=== PATIENT | female | born 1945 | race Caucasian/White ===

== ENCOUNTER 2017-07-01 12:37 | Inpatient (IN) | payer MEDICARE, SELFPAY ==
[~2017-07-01] VITALS: Ht 162.6 cm; Wt 87.6 kg
[~2017-07-01 12:37] MED LIST: ACETAMINOPHEN; ALBIPROI; ALBU.083IS IH; ALBU3IS INH; ALPR1; ALPR1 PO; ASPI81EC; ATEN25; ATEN50; BACL10 PO; BECL40OI INH; CALCAVITD PO; CLON.1; CLON.2; CLON.5; CLON1; Clonazepam0.5 MG PO; DILT120; DILT240 PO; DILTIAZEM; ERGO50000 PO; FURO20 PO; GABA300 PO; HYDACE10B PO; HYDACE5 PO; HYDCHL25 PO; INDERAL; LANS30EC; LETR2.5 PO; LEVA.63IS IH; LEVSOD125 PO; LISI10; LORA.5; LORA1; METHI10; METHIMAZOLE PO; METO50ER; NITR.4SL; NORT10; Norco 10-325 T1 EACH PO; OMEP20ER; OMEP20ER PO; OTC POTASSIUM; OXYACE5T; OXYACE5T PO; OXYCODONE; OXYGEN; POTA8 PO; POTCHL10ER PO; PRAV20; PROM25; PROM25 PO; PROP65; Percocet 5-3251 EACH PO; QUAR INH; SENNP; SIMV40 PO; SPIR25 PO; Simvastatin20 MG PO; TEGA6; TUDORZA PRESS400 MCG IH; Ventolin5 MG/1 ML INH; [UNRECOGNIZED DRUG - REMARK]; [UNRECOGNIZED DRUG - REMARK]
[2017-07-01 13:14] LABS: BASOPHILS ABSOLUTE AUTO 0.07 K/mm3 (0.00-0.23); BASOPHILS PERCENT AUTO 1 % (0-2); EOSINOPHILS ABSOLUTE AUTO 0.11 K/mm3 (0.00-0.68); EOSINOPHILS PERCENT AUTO 1 % (0-6); IMMATURE GRAN ABSOLUTE AUTO 0.03 K/mm3 (0.00-0.10); IMMATURE GRAN PERCENT AUTO 0 % (0-1); LYMPHOCYTES ABSOLUTE AUTO 1.44 K/mm3 (0.84-5.20); LYMPHOCYTES PERCENT AUTO 15 % (21-46); MONOCYTES ABSOLUTE AUTO 0.52 K/mm3 (0.16-1.47); MONOCYTES PERCENT AUTO 6 % (4-13); Mean Corpuscular HGB 29.9 pg (26.0-34.0); Mean Corpuscular HGB Conc 33.3 g/dL (31.5-36.5); Mean Corpuscular Volume 90 fL (80-100); Mean Platelet Volume 10.4 fL (9.1-12.4); NEUTROPHILS PERCENT AUTO 77 % (41-73); Platelet Count 247 K/mm3 (150-400); RDW Coefficient Variation 14.2 % (11.7-14.2); Red Blood Cell Count 5.02 M/mm3 (3.80-5.20); White Blood Cell Count 9.47 K/mm3 (4.00-11.30)
[2017-07-01 13:37] LABS: Anion Gap 13 mmol/L (6-16); Blood Urea Nitrogen 27 mg/dL (8-24); Bun/Creatinine Ratio 8.4 (12.0-20.0); CO2, Blood 21 mmol/L (21-32); Chloride, Blood 105 mmol/L (98-108); Creatinine, Blood 3.22 mg/dL (0.40-1.00); Glomerular Filtration Rate 15 (60-); Glucose, Blood 146 mg/dL (70-99); Potassium, Blood 3.4 mmol/L (3.5-5.5); Sodium, Blood 139 mmol/L (136-145); Troponin I <0.015 ng/mL (0.000-0.040)
[2017-07-01 18:56] LABS: Source, Urine Voided
[2017-07-01 19:01] LABS: Bilirubin, Urine Neg (Neg); Blood, Urine Neg (Neg); Glucose Qualitative, Urine Neg (Neg); Ketones, Urine Neg (Neg); Leukocyte Esterase, Urine Neg (Neg); Nitrite, Urine Neg (Neg); Protein, Urine Neg (Neg); Urobilinogen, Urine NORM (Normal)
[2017-07-01 19:33] LABS: Appearance, Urine Clear (Clear); Color, Urine Pale Yellow (P-Yellow)
[2017-07-02 05:43] LABS: BASOPHILS ABSOLUTE AUTO 0.06 K/mm3 (0.00-0.23); BASOPHILS PERCENT AUTO 1 % (0-2); EOSINOPHILS ABSOLUTE AUTO 0.15 K/mm3 (0.00-0.68); EOSINOPHILS PERCENT AUTO 2 % (0-6); Hematocrit 40.2 % (33.0-51.0); Hemoglobin 12.7 g/dL (11.5-16.0); IMMATURE GRAN ABSOLUTE AUTO 0.03 K/mm3 (0.00-0.10); IMMATURE GRAN PERCENT AUTO 0 % (0-1); LYMPHOCYTES ABSOLUTE AUTO 1.56 K/mm3 (0.84-5.20); LYMPHOCYTES PERCENT AUTO 21 % (21-46); MONOCYTES ABSOLUTE AUTO 0.57 K/mm3 (0.16-1.47); MONOCYTES PERCENT AUTO 8 % (4-13); Mean Corpuscular HGB 29.6 pg (26.0-34.0); Mean Corpuscular HGB Conc 31.6 g/dL (31.5-36.5); Mean Platelet Volume 10.8 fL (9.1-12.4); NEUTROPHILS ABSOLUTE AUTO 5.08 K/mm3 (1.96-9.15); NEUTROPHILS PERCENT AUTO 68 % (41-73); Platelet Count 203 K/mm3 (150-400); RDW Coefficient Variation 14.3 % (11.7-14.2); RDW Standard Deviation 49.3 fL (35.1-46.3); Red Blood Cell Count 4.29 M/mm3 (3.80-5.20); White Blood Cell Count 7.45 K/mm3 (4.00-11.30)
[2017-07-02 05:50] LABS: Mean Corpuscular Volume 94 fL (80-100)
[2017-07-02 06:15] LABS: Bun/Creatinine Ratio 7.9 (12.0-20.0); Calcium, Blood 8.1 mg/dL (8.5-10.1); Creatinine, Blood 2.91 mg/dL (0.40-1.00); Potassium, Blood 4.1 mmol/L (3.5-5.5)
[2017-07-02 14:45] LABS: Adenovirus F 40/41 Not Detected (NOT DETECT); Astrovirus Not Detected (NOT DETECT); Campylobacter Sp Not Detected (NOT DETECT); Cryptosporidium Not Detected (NOT DETECT); Cyclospora Cayetanensis Not Detected (NOT DETECT); E. Coli O157 Not Detected (NOT DETECT); Entamoeba Histolytica Not Detected (NOT DETECT); Enteroaggregative E. coli-EAEC Not Detected (NOT DETECT); Enteropathogenic E. coli-EPEC Not Detected (NOT DETECT); Enterotoxigenic E. coli-ETEC Not Detected (NOT DETECT); Giardia Lamblia Not Detected (NOT DETECT); Norovirus GI/GII Not Detected (NOT DETECT); Plesiomonas Shigelloides Not Detected (NOT DETECT); Rotavirus A Not Detected (NOT DETECT); Salmonella Sp Not Detected (NOT DETECT); Shiga Toxin-prod E. coli-STEC Not Detected (NOT DETECT); Shigella/Enteroin E. coli-EIEC Not Detected (NOT DETECT); Vibrio Cholerae Not Detected (NOT DETECT); Vibrio Sp Not Detected (NOT DETECT); Yersinia Enterocolitica Not Detected (NOT DETECT)
[2017-07-02 16:09] LABS: Sapovirus Detected (NOT DETECT)
[2017-07-03 05:24] LABS: Bun/Creatinine Ratio 6.9 (12.0-20.0); Calcium, Blood 8.5 mg/dL (8.5-10.1); Creatinine, Blood 2.33 mg/dL (0.40-1.00); Magnesium, Blood 1.8 mg/dL (1.6-2.4)
[2017-07-04 06:30] LABS: Bun/Creatinine Ratio 7.1 (12.0-20.0); Calcium, Blood 8.8 mg/dL (8.5-10.1); Creatinine, Blood 1.41 mg/dL (0.40-1.00); Potassium, Blood 4.1 mmol/L (3.5-5.5)
[2017-07-05 06:37] LABS: BASOPHILS ABSOLUTE AUTO 0.06 K/mm3 (0.00-0.23); BASOPHILS PERCENT AUTO 1 % (0-2); EOSINOPHILS PERCENT AUTO 3 % (0-6); Hemoglobin 13.2 g/dL (11.5-16.0); IMMATURE GRAN ABSOLUTE AUTO 0.03 K/mm3 (0.00-0.10); IMMATURE GRAN PERCENT AUTO 0 % (0-1); LYMPHOCYTES ABSOLUTE AUTO 1.21 K/mm3 (0.84-5.20); LYMPHOCYTES PERCENT AUTO 17 % (21-46); MONOCYTES ABSOLUTE AUTO 0.43 K/mm3 (0.16-1.47); MONOCYTES PERCENT AUTO 6 % (4-13); Mean Corpuscular HGB 30.1 pg (26.0-34.0); Mean Platelet Volume 10.5 fL (9.1-12.4); NEUTROPHILS ABSOLUTE AUTO 5.36 K/mm3 (1.96-9.15); NEUTROPHILS PERCENT AUTO 74 % (41-73); Platelet Count 198 K/mm3 (150-400); RDW Coefficient Variation 13.5 % (11.7-14.2); RDW Standard Deviation 45.8 fL (35.1-46.3); Red Blood Cell Count 4.39 M/mm3 (3.80-5.20); White Blood Cell Count 7.29 K/mm3 (4.00-11.30)
[2017-07-05 06:39] LABS: Mean Corpuscular Volume 91 fL (80-100)
[2017-07-05 06:49] LABS: Bun/Creatinine Ratio 7.2 (12.0-20.0); Calcium, Blood 9.2 mg/dL (8.5-10.1); Creatinine, Blood 1.38 mg/dL (0.40-1.00); Potassium, Blood 4.2 mmol/L (3.5-5.5)
[2017-07-07 05:21] LABS: BASOPHILS ABSOLUTE AUTO 0.06 K/mm3 (0.00-0.23); BASOPHILS PERCENT AUTO 1 % (0-2); EOSINOPHILS ABSOLUTE AUTO 0.27 K/mm3 (0.00-0.68); EOSINOPHILS PERCENT AUTO 4 % (0-6); Hemoglobin 12.3 g/dL (11.5-16.0); IMMATURE GRAN ABSOLUTE AUTO 0.02 K/mm3 (0.00-0.10); IMMATURE GRAN PERCENT AUTO 0 % (0-1); LYMPHOCYTES ABSOLUTE AUTO 1.96 K/mm3 (0.84-5.20); LYMPHOCYTES PERCENT AUTO 28 % (21-46); MONOCYTES ABSOLUTE AUTO 0.56 K/mm3 (0.16-1.47); MONOCYTES PERCENT AUTO 8 % (4-13); Mean Corpuscular HGB 29.6 pg (26.0-34.0); Mean Corpuscular HGB Conc 32.4 g/dL (31.5-36.5); Mean Corpuscular Volume 91 fL (80-100); Mean Platelet Volume 10.4 fL (9.1-12.4); NEUTROPHILS ABSOLUTE AUTO 4.25 K/mm3 (1.96-9.15); NEUTROPHILS PERCENT AUTO 60 % (41-73); Platelet Count 185 K/mm3 (150-400); RDW Coefficient Variation 13.5 % (11.7-14.2); RDW Standard Deviation 45.4 fL (35.1-46.3); Red Blood Cell Count 4.16 M/mm3 (3.80-5.20); White Blood Cell Count 7.12 K/mm3 (4.00-11.30)
[2017-07-07 05:45] LABS: Bun/Creatinine Ratio 4.1 (12.0-20.0); Calcium, Blood 8.3 mg/dL (8.5-10.1); Creatinine, Blood 1.21 mg/dL (0.40-1.00)
[2017-07-07] MEDS ORDERED: LETR2.5 PO (12:35)
[2017-07-07] MEDS ORDERED: SACC250C PO (12:37)
[2017-07-07] MEDS ORDERED: ONDA4 PO (12:37)
[2017-07-07] MEDS ORDERED: FAMO20 PO (12:38)
[2017-07-07] MEDS ORDERED: VANC125 PO (12:38)
[2017-07-07] MEDS ORDERED: IBUP800 PO (12:39)
[2017-07-07] MEDS ORDERED: METO5A PO (12:39)
[2018-03-28] MEDS ORDERED: ALBU3IS INH (21:08)
[2018-03-28] MEDS ORDERED: Norco 5-325 Ta1 EACH PO (21:08)
== END 2017-07-07 13:36 | disposition home or self-care (01) | DRG 683 ==
LOC: ER 12:37 → MEDS 15:05 → EDBEDREQ 15:32 → MEDS 16:44 → ENPENDDIS 07-07 11:33 → MEDS 07-07 13:36
PROVIDERS: Emergency Medicine; Hospitalist; Internal Medicine
DX: N17.9 Acute kidney failure, unspecified (principal); A04.72 Enterocolitis due to Clostridium difficile, not specified as recurrent; E86.0 Dehydration; K21.9 Gastro-esophageal reflux disease without esophagitis; I12.9 Hypertensive chronic kidney disease with stage 1 through stage 4 chronic kidney disease, or unspecified chronic kidney disease; N18.3 Chronic kidney disease, stage 3 (moderate); G47.30 Sleep apnea, unspecified; E03.9 Hypothyroidism, unspecified; E87.6 Hypokalemia; Z79.899 Other long term (current) drug therapy; G43.909 Migraine, unspecified, not intractable, without status migrainosus; Z85.3 Personal history of malignant neoplasm of breast; Z88.5 Allergy status to narcotic agent; Z88.8 Allergy status to other drugs, medicaments and biological substances; Z91.018 Allergy to other foods
CPT/HCPCS: 36415; 71045; 74176; 80048; 81003; 83735; 84484; 85025; 87507; 93005; 93010; 96360; 96361; 99285; J1650; J1885; J2405; J2765; J3480; J7030

== ENCOUNTER 2019-07-25 15:42 | Emergency (ER) | payer MEDICARE ==
[~2019-07-25] VITALS: Ht 160 cm; Wt 87.1 kg
[~2019-07-25 15:42] MED LIST changes: +FAMO20 PO; +IBUP800 PO; +METO5A PO; +Norco 5-325 Ta1 EACH PO; +ONDA4 PO; +SACC250C PO; +VANC125 PO
[2019-07-25] MEDS ORDERED: Roxicodone5 MG PO (17:04)
== END 2019-07-25 17:23 | disposition home or self-care (01) ==
LOC: ER 15:42
DX: S46.012A Strain of muscle(s) and tendon(s) of the rotator cuff of left shoulder, initial encounter (principal); X58.XXXA Exposure to other specified factors, initial encounter; I10 Essential (primary) hypertension; G47.30 Sleep apnea, unspecified; E03.9 Hypothyroidism, unspecified; Z85.3 Personal history of malignant neoplasm of breast; Z79.899 Other long term (current) drug therapy
CPT/HCPCS: 73030; 96374; 96375; 96376; 99284-25; J1170; J1885

== ENCOUNTER 2019-08-14 23:05 | Emergency (ER) | payer MEDICARE ==
[~2019-08-14] VITALS: Ht 160 cm; Wt 82.1 kg
[~2019-08-14 23:05] MED LIST changes: +Roxicodone5 MG PO
== END 2019-08-15 01:47 | disposition home or self-care (01) ==
LOC: ER 23:05
DX: M25.512 Pain in left shoulder (principal); G89.29 Other chronic pain; J44.9 Chronic obstructive pulmonary disease, unspecified; E03.9 Hypothyroidism, unspecified; Z88.8 Allergy status to other drugs, medicaments and biological substances; Z79.899 Other long term (current) drug therapy
CPT/HCPCS: 96374; 96376; 99283-25; A9270; J1170

== ENCOUNTER 2019-09-12 19:14 | Emergency (ER) | payer MEDICARE ==
[~2019-09-12] VITALS: Ht 160 cm; Wt 81.7 kg
[2019-09-12 20:29] LABS: BASOPHILS ABSOLUTE AUTO 0.08 K/mm3 (0.00-0.23); BASOPHILS PERCENT AUTO 1 % (0-2); EOSINOPHILS ABSOLUTE AUTO 0.17 K/mm3 (0.00-0.68); EOSINOPHILS PERCENT AUTO 2 % (0-6); Hematocrit 43.2 % (33.0-51.0); Hemoglobin 14.7 g/dL (11.5-16.0); IMMATURE GRAN ABSOLUTE AUTO 0.03 K/mm3 (0.00-0.10); IMMATURE GRAN PERCENT AUTO 0 % (0-1); LYMPHOCYTES ABSOLUTE AUTO 2.48 K/mm3 (0.84-5.20); LYMPHOCYTES PERCENT AUTO 24 % (21-46); MONOCYTES ABSOLUTE AUTO 0.74 K/mm3 (0.16-1.47); MONOCYTES PERCENT AUTO 7 % (4-13); Mean Corpuscular HGB 29.6 pg (26.0-34.0); Mean Corpuscular Volume 87 fL (80-100); Mean Platelet Volume 10.8 fL (9.1-12.4); NEUTROPHILS PERCENT AUTO 66 % (41-73); Platelet Count 257 K/mm3 (150-400); RDW Coefficient Variation 13.2 % (11.7-14.2); RDW Standard Deviation 41.9 fL (35.1-46.3); Red Blood Cell Count 4.96 M/mm3 (3.80-5.20)
[2019-09-12 20:48] LABS: Alanine Aminotransfer (ALT/SGP 28 U/L (12-78); Albumin, Blood 3.8 g/dL (3.4-5.0); Alk Phos 66 U/L (50-136); Anion Gap 9 mmol/L (6-16); Aspartate Aminotrans (AST/SGOT 16 U/L (12-37); Bilirubin, Total 0.6 mg/dL (0.1-1.0); Blood Urea Nitrogen 21 mg/dL (8-24); Bun/Creatinine Ratio 17.8 (12.0-20.0); CO2, Blood 22 mmol/L (21-32); Calcium, Blood 9.5 mg/dL (8.5-10.1); Chloride, Blood 106 mmol/L (98-108); Creatinine, Blood 1.18 mg/dL (0.40-1.00); Globulin, Blood 3.8 g/dL (2.2-4.0); Glomerular Filtration Rate 48 (60-); Glucose, Blood 157 mg/dL (70-99); Potassium, Blood 3.5 mmol/L (3.5-5.5); Sodium, Blood 137 mmol/L (136-145); Total Protein, Blood 7.6 g/dL (6.4-8.2); Troponin I <0.015 ng/mL (0.000-0.040)
[2019-09-12] MEDS ORDERED: ONDA4ODT MM (22:13)
[2019-09-12] MEDS ORDERED: Percocet 7.5-31 EACH PO (22:13)
== END 2019-09-12 22:44 | disposition home or self-care (01) ==
LOC: ER 19:14
PROVIDERS: Nurse Practitioner
DX: M25.512 Pain in left shoulder (principal); I10 Essential (primary) hypertension; E03.9 Hypothyroidism, unspecified; G47.33 Obstructive sleep apnea (adult) (pediatric); Z88.8 Allergy status to other drugs, medicaments and biological substances; Z91.018 Allergy to other foods; Z79.899 Other long term (current) drug therapy; Z79.51 Long term (current) use of inhaled steroids
CPT/HCPCS: 71046; 80053; 84484; 85025; 93005; 93010; 96374; 96375; 99284-25; J1170; J2405; J3010

== ENCOUNTER 2019-11-10 19:10 | Emergency (ER) | payer MEDICARE, OTHER ==
[~2019-11-10] VITALS: Ht 160 cm; Wt 81.7 kg
[~2019-11-10 19:10] MED LIST changes: +ONDA4ODT MM; +Percocet 7.5-31 EACH PO
[2019-11-10] MEDS ORDERED: LOSARTAN POT TAB 100 (20:53)
[2019-11-10] MEDS ORDERED: SPIRONOLACTONE25 MG PO (20:53)
[2019-11-10] MEDS ORDERED: HYDROCHLOROT TAB 12. (20:54)
[2019-11-10 21:00] LABS: Calcium, Ionized (POC) 1.19 mmol/L (1.10-1.46); Chloride (POC) 106 mmol/L (98-108); Creatinine (POC) 1.3 mg/dL (0.6-1.0); Glucose (ISTAT POC) 120 mg/dL (70-99); Hemoglobin (POC) 16.7 g/dL (12.0-16.0); Potassium (POC) 4.1 mmol/L (3.5-5.5); Sodium (POC) 138 mmol/L (135-148); Total CO2 (POC) 19 mmol/L (21-32)
[2019-11-10 21:13] LABS: Source, Urine Clean Catch
[2019-11-10 21:28] LABS: Appearance, Urine Hazy (Clear); Color, Urine Yellow (P-Yellow)
[2019-11-10 21:30] LABS: Bilirubin, Urine Neg (Neg); Blood, Urine Neg (Neg); Glucose Qualitative, Urine Neg (Neg); Ketones, Urine Neg (Neg); Leukocyte Esterase, Urine 1+ (Neg); Nitrite, Urine Neg (Neg); Protein, Urine Neg (Neg); Urobilinogen, Urine NORM (Normal)
[2019-11-10 21:44] LABS: Amorphous Mod (0-Heavy); Bacteria Mod /hpf; Red Blood Cells, Urine Not Seen /hpf (0-2); Squamous Epithelial Cells Mod /hpf (Few)
== END 2019-11-10 21:56 | disposition home or self-care (01) ==
LOC: ER 19:10
PROVIDERS: Emergency Medicine
DX: G89.29 Other chronic pain (principal); M25.512 Pain in left shoulder; R10.9 Unspecified abdominal pain; Z88.8 Allergy status to other drugs, medicaments and biological substances; Z91.018 Allergy to other foods; Z79.899 Other long term (current) drug therapy; I10 Essential (primary) hypertension; G47.33 Obstructive sleep apnea (adult) (pediatric); E03.9 Hypothyroidism, unspecified; Z85.3 Personal history of malignant neoplasm of breast
CPT/HCPCS: 36415; 80047; 81001; 85014; 96374; 99283-25; A9270; J1170

== ENCOUNTER 2019-11-27 11:06 | Day surgery (SDC) | payer MEDICARE, OTHER ==
[~2019-11-27] VITALS: Ht 160 cm; Wt 84.6 kg
[~2019-11-27 11:06] MED LIST changes: +HYDROCHLOROT TAB 12.; +LOSARTAN POT TAB 100; +SPIRONOLACTONE25 MG PO; -Simvastatin20 MG PO
[2019-11-27] MEDS ORDERED: LOSA50 PO (11:43)
[2019-11-27] MEDS ORDERED: Simvastatin20 MG PO (11:43)
[2019-11-27] MEDS ORDERED: TYLECOD3 PO (11:44)
[2019-11-27] MEDS ORDERED: IPRAT-ALBUT 0.5-3 ML INH (11:45)
[2019-11-27] MEDS ORDERED: OMEP20ER PO (11:45)
[2019-11-27] MEDS ORDERED: PROM25 PO (11:46)
--- NOTE | 2019-11-27 11:54 | NUR ---
11/27/[address] NOTIFIED OF PT'S HR.
--- NOTE | 2019-11-27 13:07 | NUR ---
11/27/19 1307 Anna Richard 1 MG OF EPI ADDED TO FIRST 3 BAGS OF LR FOR IRRIGATION.
--- NOTE | 2019-11-27 15:29 | NUR ---
11/27/19 1529 Allie Figueroa PCP ADITYA LIZARRAGA' PHONE NUMBER GIVEN TO PT AND FAMILY. PT TO GET PAIN MEDICATIONS FROM PCP D/T PAIN CONTRACT.
== END 2019-11-27 15:22 | disposition home or self-care (01) ==
LOC: ORSCSDS 11:06
PROVIDERS: Orthopaedic Surgery
PROC: 0LS24ZZ Reposition Left Shoulder Tendon, Percutaneous Endoscopic Approach (ICD-10-PCS; principal; 2019-11-27 13:00)
PROC: 0RNK4ZZ Release Left Shoulder Joint, Percutaneous Endoscopic Approach (ICD-10-PCS; principal; 2019-11-27 13:00)
PROC: 0LQ24ZZ Repair Left Shoulder Tendon, Percutaneous Endoscopic Approach (ICD-10-PCS; principal; 2019-11-27 13:00)
DX: M75.112 Incomplete rotator cuff tear or rupture of left shoulder, not specified as traumatic (principal); M75.22 Bicipital tendinitis, left shoulder; M19.012 Primary osteoarthritis, left shoulder; M75.52 Bursitis of left shoulder; I10 Essential (primary) hypertension; I48.91 Unspecified atrial fibrillation; J45.909 Unspecified asthma, uncomplicated; G47.33 Obstructive sleep apnea (adult) (pediatric); Z87.891 Personal history of nicotine dependence; E03.9 Hypothyroidism, unspecified; Z79.899 Other long term (current) drug therapy; F41.9 Anxiety disorder, unspecified
CPT/HCPCS: 82947; C1713; J0171; J0690; J1100; J1885; J2250; J2405; J2704; J2710; J2765; J3010; J7120

== ENCOUNTER 2020-02-29 08:56 | Emergency (ER) | payer MEDICARE, OTHER ==
[~2020-02-29] VITALS: Ht 160 cm; Wt 89.4 kg
[~2020-02-29 08:56] MED LIST changes: +IPRAT-ALBUT 0.5-3 ML INH; +LOSA50 PO; +Simvastatin20 MG PO; +TYLECOD3 PO
[2020-02-29 09:50] LABS: Calcium, Ionized (POC) 1.18 mmol/L (1.10-1.46); Chloride (POC) 106 mmol/L (98-108); Creatinine (POC) 1.7 mg/dL (0.6-1.0); Glucose (ISTAT POC) 118 mg/dL (70-99); Hemoglobin (POC) 14.3 g/dL (12.0-16.0); Sodium (POC) 136 mmol/L (135-148); Total CO2 (POC) 18 mmol/L (21-32)
[2020-02-29] MEDS ORDERED: HYDROCHLOROTH12.5 MG PO (10:23)
== END 2020-02-29 11:11 | disposition home or self-care (01) ==
LOC: ER 08:56
PROVIDERS: Emergency Medicine
DX: F41.9 Anxiety disorder, unspecified (principal); E03.9 Hypothyroidism, unspecified; I10 Essential (primary) hypertension; J44.9 Chronic obstructive pulmonary disease, unspecified; Z88.8 Allergy status to other drugs, medicaments and biological substances; Z91.018 Allergy to other foods; Z87.442 Personal history of urinary calculi; Z79.899 Other long term (current) drug therapy
CPT/HCPCS: 71046; 80047; 85014; 93005; 93010; 99285-25

== ENCOUNTER 2020-09-11 15:12 | Emergency (ER) | payer MEDICARE, OTHER ==
[~2020-09-11] VITALS: Ht 160 cm; Wt 81.7 kg
[~2020-09-11 15:12] MED LIST changes: +HYDROCHLOROTH12.5 MG PO
[2020-09-11 16:30] LABS: BASOPHILS ABSOLUTE AUTO 0.05 K/mm3 (0.00-0.23); BASOPHILS PERCENT AUTO 0 % (0-2); EOSINOPHILS ABSOLUTE AUTO 0.08 K/mm3 (0.00-0.68); EOSINOPHILS PERCENT AUTO 1 % (0-6); Hematocrit 45.1 % (33.0-51.0); Hemoglobin 15.3 g/dL (11.5-16.0); IMMATURE GRAN ABSOLUTE AUTO 0.05 K/mm3 (0.00-0.10); IMMATURE GRAN PERCENT AUTO 0 % (0-1); LYMPHOCYTES PERCENT AUTO 16 % (21-46); MONOCYTES ABSOLUTE AUTO 0.73 K/mm3 (0.16-1.47); MONOCYTES PERCENT AUTO 5 % (4-13); Mean Corpuscular HGB 28.4 pg (26.0-34.0); Mean Corpuscular HGB Conc 33.9 g/dL (31.5-36.5); Mean Corpuscular Volume 84 fL (80-100); Mean Platelet Volume 10.9 fL (9.1-12.4); NEUTROPHILS ABSOLUTE AUTO 10.31 K/mm3 (1.96-9.15); NEUTROPHILS PERCENT AUTO 77 % (41-73); Platelet Count 357 K/mm3 (150-400); RDW Coefficient Variation 14.6 % (11.7-14.2); RDW Standard Deviation 44.1 fL (35.1-46.3); Red Blood Cell Count 5.39 M/mm3 (3.80-5.20); White Blood Cell Count 13.42 K/mm3 (4.00-11.30)
[2020-09-11 16:46] LABS: Albumin, Blood 3.6 g/dL (3.4-5.0); Albumin/Globulin Ratio 0.7 (0.8-1.8); Bilirubin, Total 0.6 mg/dL (0.1-1.0); Bun/Creatinine Ratio 19.3 (12.0-20.0); Calcium, Blood 9.4 mg/dL (8.5-10.1); Creatinine, Blood 1.14 mg/dL (0.40-1.00); Globulin, Blood 5.2 g/dL (2.2-4.0); Potassium, Blood 3.2 mmol/L (3.5-5.5); Total Protein, Blood 8.8 g/dL (6.4-8.2)
[2020-09-11 20:33] LABS: Source, Urine Clean Catch
[2020-09-11 20:38] LABS: Appearance, Urine Cloudy (Clear); Bilirubin, Urine Neg (Neg); Blood, Urine 1+ (Neg); Color, Urine Yellow (P-Yellow); Glucose Qualitative, Urine Neg (Neg); Ketones, Urine 1+ (Neg); Leukocyte Esterase, Urine 3+ (Neg); Nitrite, Urine Pos (Neg); Protein, Urine 1+ (Neg); Specific Gravity, Urine 1.015 (1.003-1.022); Urobilinogen, Urine NORM (Normal)
[2020-09-11 20:48] LABS: Bacteria Many /hpf; Squamous Epithelial Cells Few /hpf (Few); White Blood Cells, Urine 25-50 /hpf (0-5)
[2020-09-11] MEDS ORDERED: CEFP200 PO (21:40)
[2020-09-11] MEDS ORDERED: ONDA4ODT MM (21:41)
== END 2020-09-11 22:12 | disposition home or self-care (01) ==
LOC: ER 15:12
PROVIDERS: Emergency Medicine; Physician Assistant
DX: N12 Tubulo-interstitial nephritis, not specified as acute or chronic (principal); I12.9 Hypertensive chronic kidney disease with stage 1 through stage 4 chronic kidney disease, or unspecified chronic kidney disease; N18.9 Chronic kidney disease, unspecified; J44.9 Chronic obstructive pulmonary disease, unspecified; E03.9 Hypothyroidism, unspecified; Z88.8 Allergy status to other drugs, medicaments and biological substances; Z91.018 Allergy to other foods; Z79.899 Other long term (current) drug therapy
CPT/HCPCS: 36415; 71045; 80053; 81001; 83690; 85025; 87077; 87086; 87186; 93005; 93010; 96365; 96375; 99284-25; A9270; J0696; J2405; J3010; J7030

== ENCOUNTER → 2020-10-15 | Outpatient (CLI) | payer MEDICARE, OTHER ==
[~2020-10-15] MED LIST changes: +CEFP200 PO
== END ==
LOC: LAB 14:38 → LAB SHORT 14:38
DX: N39.0 Urinary tract infection, site not specified (principal); Z88.6 Allergy status to analgesic agent; Z88.8 Allergy status to other drugs, medicaments and biological substances; Z91.018 Allergy to other foods
CPT/HCPCS: 87086

== ENCOUNTER 2021-01-26 05:23 | Inpatient (IN) | payer MEDICARE, OTHER ==
[~2021-01-26] VITALS: Ht 160 cm; Wt 92.0 kg
[~2021-01-26 05:23] MED LIST changes: +EUTHYROX175 MCG PO; -LEVSOD125 PO; +LOSA25 PO; -LOSA50 PO
[2021-01-26 06:06] LABS: BASOPHILS ABSOLUTE AUTO 0.07 K/mm3 (0.00-0.23); BASOPHILS PERCENT AUTO 1 % (0-2); EOSINOPHILS ABSOLUTE AUTO 0.01 K/mm3 (0.00-0.68); EOSINOPHILS PERCENT AUTO 0 % (0-6); Hematocrit 37.2 % (33.0-51.0); IMMATURE GRAN ABSOLUTE AUTO 0.08 K/mm3 (0.00-0.10); IMMATURE GRAN PERCENT AUTO 1 % (0-1); LYMPHOCYTES ABSOLUTE AUTO 1.79 K/mm3 (0.84-5.20); LYMPHOCYTES PERCENT AUTO 13 % (21-46); MONOCYTES ABSOLUTE AUTO 0.25 K/mm3 (0.16-1.47); MONOCYTES PERCENT AUTO 2 % (4-13); Mean Corpuscular HGB 28.2 pg (26.0-34.0); Mean Corpuscular HGB Conc 32.3 g/dL (31.5-36.5); Mean Corpuscular Volume 88 fL (80-100); Mean Platelet Volume 11.5 fL (9.1-12.4); NEUTROPHILS ABSOLUTE AUTO 11.22 K/mm3 (1.96-9.15); NEUTROPHILS PERCENT AUTO 84 % (41-73); Platelet Count 294 K/mm3 (150-400); RDW Coefficient Variation 14.8 % (11.7-14.2); RDW Standard Deviation 47.7 fL (35.1-46.3); Red Blood Cell Count 4.25 M/mm3 (3.80-5.20); White Blood Cell Count 13.42 K/mm3 (4.00-11.30)
[2021-01-26 06:18] LABS: Albumin, Blood 2.9 g/dL (3.4-5.0); Albumin/Globulin Ratio 0.9 (0.8-1.8); Bilirubin, Total 0.7 mg/dL (0.1-1.0); Calcium, Blood 8.1 mg/dL (8.5-10.1); Creatinine, Blood 1.25 mg/dL (0.40-1.00); Globulin, Blood 3.4 g/dL (2.2-4.0); Potassium, Blood 3.5 mmol/L (3.5-5.5); Total Protein, Blood 6.3 g/dL (6.4-8.2)
[2021-01-26 07:01] LABS: SARS-Cov-2 (COVID-19) PCR, MMC NEGATIVE (NEGATIVE)
[2021-01-26 10:45] LABS: Calcium, Ionized (POC) 0.96 mmol/L (1.10-1.46); Chloride (POC) 115 mmol/L (98-108); Creatinine (POC) 1.2 mg/dL (0.6-1.0); Glucose (ISTAT POC) 158 mg/dL (70-99); Hemoglobin (POC) 9.2 g/dL (12.0-16.0); Potassium (POC) 4.2 mmol/L (3.5-5.5); Sodium (POC) 142 mmol/L (135-148); Total CO2 (POC) 16 mmol/L (21-32)
[2021-01-26] MEDS ORDERED: OXYCODONE-ACET1 EAC2 PO (12:51)
[2021-01-26 17:30] LABS: Base Excess Venous -2.6 mmol/L; Bicarbonate Venous 22.1 mmol/L (24.0-30.0); PCO2 Venous 32.2 mmHg (38-42); pH Blood Venous 7.44 (7.34-7.37)
[2021-01-26 17:40] LABS: Hematocrit 33.8 % (33.0-51.0); Hemoglobin 11.3 g/dL (11.5-16.0)
[2021-01-26 21:21] LABS: Hematocrit 31.5 % (33.0-51.0); Hemoglobin 10.4 g/dL (11.5-16.0)
[2021-01-27 04:25] LABS: BASOPHILS ABSOLUTE AUTO 0.07 K/mm3 (0.00-0.23); BASOPHILS PERCENT AUTO 1 % (0-2); EOSINOPHILS ABSOLUTE AUTO 0.05 K/mm3 (0.00-0.68); EOSINOPHILS PERCENT AUTO 1 % (0-6); Hematocrit 28.1 % (33.0-51.0); Hemoglobin 8.9 g/dL (11.5-16.0); IMMATURE GRAN ABSOLUTE AUTO 0.04 K/mm3 (0.00-0.10); IMMATURE GRAN PERCENT AUTO 0 % (0-1); LYMPHOCYTES ABSOLUTE AUTO 3.25 K/mm3 (0.84-5.20); LYMPHOCYTES PERCENT AUTO 30 % (21-46); MONOCYTES PERCENT AUTO 7 % (4-13); Mean Corpuscular HGB 28.3 pg (26.0-34.0); Mean Corpuscular HGB Conc 31.7 g/dL (31.5-36.5); Mean Corpuscular Volume 90 fL (80-100); Mean Platelet Volume 11.1 fL (9.1-12.4); NEUTROPHILS ABSOLUTE AUTO 6.82 K/mm3 (1.96-9.15); NEUTROPHILS PERCENT AUTO 62 % (41-73); Platelet Count 177 K/mm3 (150-400); RDW Coefficient Variation 15.4 % (11.7-14.2); RDW Standard Deviation 50.4 fL (35.1-46.3); Red Blood Cell Count 3.14 M/mm3 (3.80-5.20); White Blood Cell Count 11.03 K/mm3 (4.00-11.30)
[2021-01-27 04:45] LABS: Albumin, Blood 2.4 g/dL (3.4-5.0); Bilirubin, Total 0.6 mg/dL (0.1-1.0); Bun/Creatinine Ratio 29.4 (12.0-20.0); Calcium, Blood 7.5 mg/dL (8.5-10.1); Creatinine, Blood 1.26 mg/dL (0.40-1.00); Globulin, Blood 2.5 g/dL (2.2-4.0); Magnesium, Blood 1.4 mg/dL (1.6-2.4); Potassium, Blood 3.4 mmol/L (3.5-5.5); Total Protein, Blood 4.9 g/dL (6.4-8.2)
[2021-01-27 09:56] LABS: Hematocrit 28.8 % (33.0-51.0); Hemoglobin 9.3 g/dL (11.5-16.0)
[2021-01-27 14:49] LABS: Hematocrit 28.4 % (33.0-51.0); Hemoglobin 9.1 g/dL (11.5-16.0)
[2021-01-27 22:24] LABS: Hematocrit 28.6 % (33.0-51.0); Hemoglobin 9.4 g/dL (11.5-16.0)
[2021-01-28 06:11] LABS: BASOPHILS ABSOLUTE AUTO 0.06 K/mm3 (0.00-0.23); BASOPHILS PERCENT AUTO 1 % (0-2); EOSINOPHILS ABSOLUTE AUTO 0.19 K/mm3 (0.00-0.68); EOSINOPHILS PERCENT AUTO 2 % (0-6); Hematocrit 24.4 % (33.0-51.0); IMMATURE GRAN ABSOLUTE AUTO 0.04 K/mm3 (0.00-0.10); IMMATURE GRAN PERCENT AUTO 1 % (0-1); LYMPHOCYTES ABSOLUTE AUTO 1.88 K/mm3 (0.84-5.20); LYMPHOCYTES PERCENT AUTO 22 % (21-46); MONOCYTES ABSOLUTE AUTO 0.54 K/mm3 (0.16-1.47); MONOCYTES PERCENT AUTO 6 % (4-13); Mean Corpuscular HGB 28.9 pg (26.0-34.0); Mean Corpuscular HGB Conc 32.8 g/dL (31.5-36.5); Mean Corpuscular Volume 88 fL (80-100); Mean Platelet Volume 11.5 fL (9.1-12.4); NEUTROPHILS ABSOLUTE AUTO 5.92 K/mm3 (1.96-9.15); NEUTROPHILS PERCENT AUTO 69 % (41-73); Platelet Count 138 K/mm3 (150-400); RDW Coefficient Variation 15.3 % (11.7-14.2); RDW Standard Deviation 49.1 fL (35.1-46.3); Red Blood Cell Count 2.77 M/mm3 (3.80-5.20); White Blood Cell Count 8.63 K/mm3 (4.00-11.30)
[2021-01-28 06:33] LABS: Albumin, Blood 2.5 g/dL (3.4-5.0); Bilirubin, Total 0.7 mg/dL (0.1-1.0); Bun/Creatinine Ratio 12.1 (12.0-20.0); Calcium, Blood 7.7 mg/dL (8.5-10.1); Creatinine, Blood 1.24 mg/dL (0.40-1.00); Globulin, Blood 2.5 g/dL (2.2-4.0); Potassium, Blood 3.3 mmol/L (3.5-5.5)
[2021-01-28 11:40] LABS: Hematocrit 25.2 % (33.0-51.0)
[2021-01-28 17:24] LABS: Hematocrit 27.9 % (33.0-51.0); Hemoglobin 9.1 g/dL (11.5-16.0)
[2021-01-28 22:39] LABS: Source, Urine Catheter
[2021-01-28 22:45] LABS: Bilirubin, Urine Neg (Neg); Blood, Urine Neg (Neg); Glucose Qualitative, Urine Neg (Neg); Ketones, Urine Neg (Neg); Leukocyte Esterase, Urine 2+ (Neg); Nitrite, Urine Neg (Neg); Protein, Urine Neg (Neg); Specific Gravity, Urine 1.005 (1.003-1.022); Urobilinogen, Urine NORM (Normal)
[2021-01-28 22:54] LABS: Appearance, Urine Clear (Clear); Color, Urine Yellow (P-Yellow)
[2021-01-28 22:55] LABS: Bacteria Mod /hpf; Red Blood Cells, Urine 0-2 /hpf (0-2); Squamous Epithelial Cells Few /hpf (Few); White Blood Cells, Urine 25-50 /hpf (0-5)
[2021-01-29 06:25] LABS: BASOPHILS ABSOLUTE AUTO 0.06 K/mm3 (0.00-0.23); BASOPHILS PERCENT AUTO 1 % (0-2); EOSINOPHILS ABSOLUTE AUTO 0.24 K/mm3 (0.00-0.68); EOSINOPHILS PERCENT AUTO 3 % (0-6); Hematocrit 26.3 % (33.0-51.0); Hemoglobin 8.5 g/dL (11.5-16.0); IMMATURE GRAN ABSOLUTE AUTO 0.02 K/mm3 (0.00-0.10); IMMATURE GRAN PERCENT AUTO 0 % (0-1); LYMPHOCYTES ABSOLUTE AUTO 1.35 K/mm3 (0.84-5.20); LYMPHOCYTES PERCENT AUTO 17 % (21-46); MONOCYTES ABSOLUTE AUTO 0.55 K/mm3 (0.16-1.47); MONOCYTES PERCENT AUTO 7 % (4-13); Mean Corpuscular HGB 28.5 pg (26.0-34.0); Mean Corpuscular HGB Conc 32.3 g/dL (31.5-36.5); Mean Corpuscular Volume 88 fL (80-100); Mean Platelet Volume 11.3 fL (9.1-12.4); NEUTROPHILS ABSOLUTE AUTO 5.77 K/mm3 (1.96-9.15); NEUTROPHILS PERCENT AUTO 72 % (41-73); NRBC ABSOLUTE 0.03 K/mm3 (0.00-0.02); NRBC Auto 0.4 /100 WBC (0.0-0.2); Platelet Count 150 K/mm3 (150-400); RDW Coefficient Variation 15.5 % (11.7-14.2); RDW Standard Deviation 49.3 fL (35.1-46.3); Red Blood Cell Count 2.98 M/mm3 (3.80-5.20); White Blood Cell Count 7.99 K/mm3 (4.00-11.30)
[2021-01-29 10:22] LABS: Albumin, Blood 2.9 g/dL (3.4-5.0); Albumin/Globulin Ratio 0.9 (0.8-1.8); Bilirubin, Total 0.7 mg/dL (0.1-1.0); Bun/Creatinine Ratio 7.2 (12.0-20.0); Calcium, Blood 8.6 mg/dL (8.5-10.1); Creatinine, Blood 0.97 mg/dL (0.40-1.00); Globulin, Blood 3.2 g/dL (2.2-4.0); Potassium, Blood 3.3 mmol/L (3.5-5.5); Total Protein, Blood 6.1 g/dL (6.4-8.2)
[2021-01-30 05:14] LABS: BASOPHILS ABSOLUTE AUTO 0.06 K/mm3 (0.00-0.23); BASOPHILS PERCENT AUTO 1 % (0-2); EOSINOPHILS ABSOLUTE AUTO 0.31 K/mm3 (0.00-0.68); EOSINOPHILS PERCENT AUTO 4 % (0-6); Hematocrit 26.2 % (33.0-51.0); Hemoglobin 8.4 g/dL (11.5-16.0); IMMATURE GRAN ABSOLUTE AUTO 0.04 K/mm3 (0.00-0.10); IMMATURE GRAN PERCENT AUTO 1 % (0-1); LYMPHOCYTES PERCENT AUTO 24 % (21-46); MONOCYTES ABSOLUTE AUTO 0.67 K/mm3 (0.16-1.47); MONOCYTES PERCENT AUTO 8 % (4-13); Mean Corpuscular HGB 28.6 pg (26.0-34.0); Mean Corpuscular HGB Conc 32.1 g/dL (31.5-36.5); Mean Corpuscular Volume 89 fL (80-100); Mean Platelet Volume 11.2 fL (9.1-12.4); NEUTROPHILS PERCENT AUTO 64 % (41-73); Platelet Count 178 K/mm3 (150-400); RDW Coefficient Variation 15.8 % (11.7-14.2); RDW Standard Deviation 49.6 fL (35.1-46.3); Red Blood Cell Count 2.94 M/mm3 (3.80-5.20); White Blood Cell Count 8.78 K/mm3 (4.00-11.30)
[2021-01-30 05:32] LABS: Albumin, Blood 2.6 g/dL (3.4-5.0); Albumin/Globulin Ratio 0.8 (0.8-1.8); Bilirubin, Total 0.7 mg/dL (0.1-1.0); Bun/Creatinine Ratio 3.2 (12.0-20.0); Calcium, Blood 7.7 mg/dL (8.5-10.1); Creatinine, Blood 1.25 mg/dL (0.40-1.00); Globulin, Blood 3.3 g/dL (2.2-4.0); Potassium, Blood 3.3 mmol/L (3.5-5.5); Total Protein, Blood 5.9 g/dL (6.4-8.2)
[2021-01-30] MEDS ORDERED: ALBU2.5V5 INH (15:13)
[2021-01-30] MEDS ORDERED: COLCRYS0.6 M1 PO (15:18)
[2021-01-30] MEDS ORDERED: OMEP20ER PO (15:19)
[2021-01-30] MEDS ORDERED: SUCRALFATE PO (15:23)
[2021-01-30] MEDS ORDERED: CEFD300 PO (15:24)
== END 2021-01-30 16:10 | disposition home or self-care (01) | DRG 368 ==
LOC: ER 05:23 → ERHOLD 12:46 → ICUW 12:46 → ORSCIP 12:46 → MEDS 12:46 → ICUW 17:05 → MEDS 01-27 22:27 → ORSCIP 01-28 16:55
PROVIDERS: Emergency Medicine; Internal Medicine; Internal Medicine Gastroenterology; Nurse Practitioner Acute Care; Student in an Organized Health Care Education/Training Program; ADMIT Hospitalist
PROC: 0DJ08ZZ Inspection of Upper Intestinal Tract, Via Natural or Artificial Opening Endoscopic (ICD-10-PCS; 2021-01-26)
PROC: 30233N1 Transfusion of Nonautologous Red Blood Cells into Peripheral Vein, Percutaneous Approach (ICD-10-PCS; principal; 2021-01-26 17:45)
PROC: 0DJ08ZZ Inspection of Upper Intestinal Tract, Via Natural or Artificial Opening Endoscopic (ICD-10-PCS; 2021-01-27)
DX: K22.6 Gastro-esophageal laceration-hemorrhage syndrome (principal); R57.1 Hypovolemic shock; D62 Acute posthemorrhagic anemia; N39.0 Urinary tract infection, site not specified; Z20.822 Contact with and (suspected) exposure to COVID-19; K31.819 Angiodysplasia of stomach and duodenum without bleeding; E87.6 Hypokalemia; E83.42 Hypomagnesemia; E03.9 Hypothyroidism, unspecified; J44.9 Chronic obstructive pulmonary disease, unspecified; I48.91 Unspecified atrial fibrillation; N18.30 Chronic kidney disease, stage 3 unspecified; G47.33 Obstructive sleep apnea (adult) (pediatric); E78.5 Hyperlipidemia, unspecified; M10.9 Gout, unspecified; I12.9 Hypertensive chronic kidney disease with stage 1 through stage 4 chronic kidney disease, or unspecified chronic kidney disease; Z85.3 Personal history of malignant neoplasm of breast; Z90.49 Acquired absence of other specified parts of digestive tract; Z98.890 Other specified postprocedural states; Z90.89 Acquired absence of other organs; Z85.850 Personal history of malignant neoplasm of thyroid; Z99.81 Dependence on supplemental oxygen; Z87.891 Personal history of nicotine dependence; Z86.010 Personal history of colon polyps; Z90.710 Acquired absence of both cervix and uterus; Z79.899 Other long term (current) drug therapy
CPT/HCPCS: 36415; 36430; 74176; 80047; 80053; 81001; 82272; 82803; 83036; 83690; 83735; 83880; 84132; 84484; 84550; 85014; 85018; 85025; 86850; 86900; 86901; 86902; 86922; 87077; 87086; 87186; 93005; 93010; 96374; 96375; 97116; 97162; 97165; 97535; 99285-25; A9270; C1751; C9113; J0171; J0696; J1430; J2370; J2405; J2550; J2704; J2765; J2916; J3010; J3475; J3480; J7030; J7050; J7120; P9016; U0004

== ENCOUNTER → 2021-04-16 | Outpatient (CLI) | payer MEDICARE, OTHER ==
[~2021-04-16] MED LIST changes: +ALBU2.5V5 INH; +CEFD300 PO; +COLCRYS0.6 M1 PO; +OXYCODONE-ACET1 EAC2 PO; +SUCRALFATE PO
[2021-04-16 19:09] LABS: BASOPHILS ABSOLUTE AUTO 0.07 K/mm3 (0.00-0.23); BASOPHILS PERCENT AUTO 1 % (0-2); EOSINOPHILS ABSOLUTE AUTO 0.15 K/mm3 (0.00-0.68); EOSINOPHILS PERCENT AUTO 2 % (0-6); Hematocrit 39.4 % (33.0-51.0); IMMATURE GRAN ABSOLUTE AUTO 0.02 K/mm3 (0.00-0.10); IMMATURE GRAN PERCENT AUTO 0 % (0-1); LYMPHOCYTES ABSOLUTE AUTO 2.39 K/mm3 (0.84-5.20); LYMPHOCYTES PERCENT AUTO 24 % (21-46); MONOCYTES ABSOLUTE AUTO 0.83 K/mm3 (0.16-1.47); MONOCYTES PERCENT AUTO 8 % (4-13); Mean Corpuscular HGB 23.2 pg (26.0-34.0); Mean Corpuscular HGB Conc 30.5 g/dL (31.5-36.5); Mean Corpuscular Volume 76 fL (80-100); Mean Platelet Volume 11.8 fL (9.1-12.4); NEUTROPHILS ABSOLUTE AUTO 6.46 K/mm3 (1.96-9.15); NEUTROPHILS PERCENT AUTO 65 % (41-73); Platelet Count 297 K/mm3 (150-400); RDW Coefficient Variation 16.6 % (11.7-14.2); RDW Standard Deviation 46.1 fL (35.1-46.3); Red Blood Cell Count 5.17 M/mm3 (3.80-5.20); White Blood Cell Count 9.92 K/mm3 (4.00-11.30)
[2021-04-16 19:17] LABS: Anion Gap 7 mmol/L (6-16); Blood Urea Nitrogen 23 mg/dL (8-24); CHOL/HDL RATIO 4.8; CO2, Blood 24 mmol/L (21-32); Calcium, Blood 9.2 mg/dL (8.5-10.1); Chloride, Blood 105 mmol/L (98-108); Cholesterol 215 mg/dL (50-200); Creatinine, Blood 1.21 mg/dL (0.40-1.00); Glomerular Filtration Rate 43 (60-); Glucose, Blood 103 mg/dL (70-99); HDL Cholesterol 45 mg/dL (>39); LDL/HDL RATIO 2.6; Low Density Lipoprotein Chol 116 mg/dL (0-110); Potassium, Blood 3.6 mmol/L (3.5-5.5); Sodium, Blood 136 mmol/L (136-145); Triglycerides 268 mg/dL (30-160); Very Low Density Lipoprot Chol 53 mg/dL (6-32)
== END ==
LOC: LAB 14:45 → LAB SHORT 14:45
PROVIDERS: Family Medicine
DX: Z11.59 Encounter for screening for other viral diseases (principal); E11.9 Type 2 diabetes mellitus without complications; E78.5 Hyperlipidemia, unspecified
CPT/HCPCS: 80048; 80061; 85025; 86803

== ENCOUNTER → 2022-10-14 | Outpatient (CLI) | payer MEDICARE, OTHER | END | disposition home or self-care (01) | LOC: LAB 14:15 → LAB SHORT 14:15 | DX: E03.9 Hypothyroidism, unspecified (principal) | CPT/HCPCS: 84443 ==

== ENCOUNTER 2023-01-20 16:25 | Emergency (ER) | payer MEDICARE, OTHER ==
[~2023-01-20] VITALS: Ht 160 cm; Wt 80.7 kg
[2023-01-20 17:47] LABS: BASOPHILS ABSOLUTE AUTO 0.08 K/mm3 (0.00-0.23); BASOPHILS PERCENT AUTO 1 % (0-2); EOSINOPHILS ABSOLUTE AUTO 0.18 K/mm3 (0.00-0.68); EOSINOPHILS PERCENT AUTO 2 % (0-6); Hematocrit 44.1 % (33.0-51.0); Hemoglobin 14.8 g/dL (11.5-16.0); IMMATURE GRAN ABSOLUTE AUTO 0.03 K/mm3 (0.00-0.10); IMMATURE GRAN PERCENT AUTO 0 % (0-1); LYMPHOCYTES ABSOLUTE AUTO 2.31 K/mm3 (0.84-5.20); LYMPHOCYTES PERCENT AUTO 23 % (21-46); MONOCYTES ABSOLUTE AUTO 0.86 K/mm3 (0.16-1.47); MONOCYTES PERCENT AUTO 9 % (4-13); Mean Corpuscular HGB 28.3 pg (26.0-34.0); Mean Corpuscular HGB Conc 33.6 g/dL (31.5-36.5); Mean Corpuscular Volume 84 fL (80-100); Mean Platelet Volume 11.2 fL (9.1-12.4); NEUTROPHILS PERCENT AUTO 65 % (41-73); Platelet Count 243 K/mm3 (150-400); RDW Standard Deviation 43.1 fL (35.1-46.3); Red Blood Cell Count 5.23 M/mm3 (3.80-5.20); White Blood Cell Count 9.96 K/mm3 (4.00-11.30)
[2023-01-20 18:02] LABS: Magnesium, Blood 1.8 mg/dL (1.6-2.4)
[2023-01-20 18:06] LABS: Albumin, Blood 3.6 g/dL (3.4-5.0); Albumin/Globulin Ratio 0.8 (0.8-1.8); Bilirubin, Total 0.5 mg/dL (0.1-1.0); Bun/Creatinine Ratio 25.4 (12.0-20.0); Calcium, Blood 9.8 mg/dL (8.5-10.1); Creatinine, Blood 1.14 mg/dL (0.40-1.00); Globulin, Blood 4.5 g/dL (2.2-4.0); Phosphorus, Blood 2.7 mg/dL (2.5-4.9); Potassium, Blood 3.9 mmol/L (3.5-5.5); Thyroid Stimulating Hormone 0.341 uIU/mL (0.360-4.800); Total Protein, Blood 8.1 g/dL (6.4-8.2)
[2023-01-20 19:09] LABS: D-Dimer, Quantitative 0.66 mg/L FEU (0.00-0.52); International Normalized Ratio 1.05
[2023-01-20 21:00] LABS: Anti-Xa UFH, PHA Monitoring <0.10 IU/mL
[2023-01-20] MEDS ORDERED: XARELTO20 MG PO (22:10)
[2023-01-20 22:30] VITALS: BP 117/79
== END 2023-01-20 22:54 | disposition home or self-care (01) ==
LOC: ER 16:25
PROVIDERS: Emergency Medicine
DX: R00.2 Palpitations (principal); R00.9 Unspecified abnormalities of heart beat; I48.91 Unspecified atrial fibrillation; J44.9 Chronic obstructive pulmonary disease, unspecified; E03.9 Hypothyroidism, unspecified; I10 Essential (primary) hypertension; C50.919 Malignant neoplasm of unspecified site of unspecified female breast; Z99.81 Dependence on supplemental oxygen; Z79.810 Long term (current) use of selective estrogen receptor modulators (SERMs); Z88.5 Allergy status to narcotic agent; Z88.8 Allergy status to other drugs, medicaments and biological substances; Z79.899 Other long term (current) drug therapy
CPT/HCPCS: 71045; 80053; 83735; 84100; 84443; 84484; 85025; 85379; 85520; 85610; 85730; 93005; 93010; 96361; 96365; 99285-25; A9270; J1644; J3475; J7030

== ENCOUNTER 2023-06-09 10:24 | Emergency (ER) | payer MEDICARE, OTHER ==
[~2023-06-09] VITALS: Ht 160 cm; Wt 79.4 kg
[~2023-06-09 10:24] MED LIST changes: +XARELTO20 MG PO
[2023-06-09 11:46] LABS: BASOPHILS ABSOLUTE AUTO 0.07 K/mm3 (0.00-0.23); BASOPHILS PERCENT AUTO 1 % (0-2); EOSINOPHILS ABSOLUTE AUTO 0.23 K/mm3 (0.00-0.68); EOSINOPHILS PERCENT AUTO 2 % (0-6); Hematocrit 47.4 % (33.0-51.0); IMMATURE GRAN ABSOLUTE AUTO 0.04 K/mm3 (0.00-0.10); IMMATURE GRAN PERCENT AUTO 0 % (0-1); LYMPHOCYTES ABSOLUTE AUTO 1.81 K/mm3 (0.84-5.20); LYMPHOCYTES PERCENT AUTO 17 % (21-46); MONOCYTES ABSOLUTE AUTO 0.72 K/mm3 (0.16-1.47); MONOCYTES PERCENT AUTO 7 % (4-13); Mean Corpuscular HGB 27.5 pg (26.0-34.0); Mean Corpuscular HGB Conc 33.8 g/dL (31.5-36.5); Mean Corpuscular Volume 81 fL (80-100); Mean Platelet Volume 10.9 fL (9.1-12.4); NEUTROPHILS ABSOLUTE AUTO 7.53 K/mm3 (1.96-9.15); NEUTROPHILS PERCENT AUTO 72 % (41-73); Platelet Count 268 K/mm3 (150-400); RDW Coefficient Variation 15.1 % (11.7-14.2); RDW Standard Deviation 43.8 fL (35.1-46.3); Red Blood Cell Count 5.82 M/mm3 (3.80-5.20)
[2023-06-09 12:14] LABS: Albumin, Blood 3.5 g/dL (3.4-5.0); Albumin/Globulin Ratio 0.7 (0.8-1.8); Bun/Creatinine Ratio 9.9 (12.0-20.0); Calcium, Blood 9.7 mg/dL (8.5-10.1); Creatinine, Blood 0.81 mg/dL (0.40-1.00); Potassium, Blood 3.3 mmol/L (3.5-5.5); Total Protein, Blood 8.5 g/dL (6.4-8.2)
[2023-06-09 15:04] LABS: Magnesium, Blood 1.9 mg/dL (1.6-2.4)
[2023-06-09] MEDS ORDERED: ONDA4ODT MM (16:35)
[2023-06-09 17:00] VITALS: BP 144/81
[2023-06-09] MEDS ORDERED: METO25ER (17:56)
== END 2023-06-09 17:14 | disposition home or self-care (01) ==
LOC: ER 10:24
PROVIDERS: Emergency Medicine
DX: I48.91 Unspecified atrial fibrillation (principal); I10 Essential (primary) hypertension; B34.9 Viral infection, unspecified; G89.29 Other chronic pain; J44.9 Chronic obstructive pulmonary disease, unspecified; E03.9 Hypothyroidism, unspecified; G47.30 Sleep apnea, unspecified; Z79.899 Other long term (current) drug therapy; Z88.8 Allergy status to other drugs, medicaments and biological substances; Z91.018 Allergy to other foods
CPT/HCPCS: 28190; 71046; 80053; 83735; 85025; 93005; 93010; 96374-59; 99284-25; A9270; J2405

== ENCOUNTER 2024-01-21 20:23 | Inpatient (IN) | payer MEDICARE, OTHER ==
[~2024-01-21] VITALS: Ht 160 cm; Wt 70.0 kg
[~2024-01-21 20:23] MED LIST changes: +AMLODIPINE BESYL5 MG PO; +CEPH500 PO; +EUTHYROX125 MC1 PO; +JARDIANCE10 MG PO; +METO25ER PO; +XARELTO20 M1 PO
[2024-01-21 20:53] LABS: BASOPHILS ABSOLUTE AUTO 0.08 K/mm3 (0.00-0.23); BASOPHILS PERCENT AUTO 1 % (0-2); EOSINOPHILS ABSOLUTE AUTO 0.12 K/mm3 (0.00-0.68); EOSINOPHILS PERCENT AUTO 1 % (0-6); Hematocrit 49.7 % (33.0-51.0); Hemoglobin 16.9 g/dL (11.5-16.0); IMMATURE GRAN ABSOLUTE AUTO 0.04 K/mm3 (0.00-0.10); IMMATURE GRAN PERCENT AUTO 0 % (0-1); LYMPHOCYTES ABSOLUTE AUTO 2.12 K/mm3 (0.84-5.20); LYMPHOCYTES PERCENT AUTO 18 % (21-46); MONOCYTES ABSOLUTE AUTO 0.89 K/mm3 (0.16-1.47); MONOCYTES PERCENT AUTO 7 % (4-13); Mean Corpuscular HGB 29.2 pg (26.0-34.0); Mean Corpuscular Volume 86 fL (80-100); Mean Platelet Volume 11.2 fL (9.1-12.4); NEUTROPHILS ABSOLUTE AUTO 8.89 K/mm3 (1.96-9.15); NEUTROPHILS PERCENT AUTO 73 % (41-73); Platelet Count 237 K/mm3 (150-400); RDW Coefficient Variation 14.5 % (11.7-14.2); RDW Standard Deviation 45.1 fL (35.1-46.3); Red Blood Cell Count 5.78 M/mm3 (3.80-5.20); White Blood Cell Count 12.14 K/mm3 (4.00-11.30)
[2024-01-21 21:10] LABS: D-Dimer, Quantitative 0.77 mg/L FEU (0.00-0.52); International Normalized Ratio 1.29; Prothrombin Time Results 13.5 Sec (9.7-11.5)
[2024-01-21 21:17] LABS: Free Thyroxine 1.62 ng/dL (0.70-1.60); Thyroid Stimulating Hormone 5.47 uIU/mL (0.360-4.800)
[2024-01-21 21:19] LABS: Albumin, Blood 3.4 g/dL (3.4-5.0); Albumin/Globulin Ratio 0.8 (0.8-1.8); Bilirubin, Total 1.3 mg/dL (0.1-1.0); Bun/Creatinine Ratio 18.7 (12.0-20.0); Calcium, Blood 14.6 mg/dL (8.5-10.1); Creatinine, Blood 1.55 mg/dL (0.40-1.00); Globulin, Blood 4.4 g/dL (2.2-4.0); Potassium, Blood 4.7 mmol/L (3.5-5.5); Total Protein, Blood 7.8 g/dL (6.4-8.2)
[2024-01-21] MEDS ORDERED: NS 1,000 ML IV SCH ×2 (21:25→23:00)
[2024-01-21 21:42] LABS: Magnesium, Blood 1.6 mg/dL (1.6-2.4)
[2024-01-21] MEDS ORDERED: ZOLEDRONIC ACID IV ONE (22:55)
[2024-01-21] MEDS ORDERED: NS IV ONE (22:55)
[2024-01-21] MEDS ORDERED: Calcitonin Salmon 200 IU/ML 2ML Vial SC SCH (23:15)
[2024-01-21 23:43] LABS: Source, Urine Clean Catch
[2024-01-21 23:45] LABS: Bilirubin, Urine Neg (Neg); Blood, Urine 1+ (Neg); Glucose Qualitative, Urine 3+ (Neg); Ketones, Urine Neg (Neg); Leukocyte Esterase, Urine 3+ (Neg); Nitrite, Urine Neg (Neg); Protein, Urine Neg (Neg); Specific Gravity, Urine 1.015 (1.003-1.022); Urobilinogen, Urine NORM (Normal)
[2024-01-21 23:53] LABS: Appearance, Urine Hazy (Clear); Color, Urine Pale Yellow (P-Yellow)
[2024-01-21 23:54] LABS: Bacteria Mod /hpf; Squamous Epithelial Cells Few /hpf (Few); White Blood Cells, Urine 25-50 /hpf (0-5)
[2024-01-22] VITALS (7 sets, daily range): BP systolic 90–117; BP diastolic 65–82
[2024-01-22] MEDS ORDERED: Ondansetron HCl 2 MG / ML 2ML Vial IV PRN (00:25)
[2024-01-22] MEDS ORDERED: Morphine Sulfate 4 MG/1 ML Injection IV PRN (00:55)
[2024-01-22] MEDS ORDERED: Acetaminophen 325 MG TABLET PO PRN (04:10)
--- NOTE | 2024-01-22 04:39 | NUR ---
SHIFT SUMMARY PT ARRIVED FROM ED AT 0055. PT A&O3 (YR), VSS AND COMPLETED ADMISSION HX WITH PT. PT STATES HAVE HAD SEVERAL FALLS RECENTLY, EDUCATED PT ON FALL PREVENTION AND APPLIED PURE WICK. PT PASSED BEDSIDE DYSPHAGIA SCREEN AND MD NOTIFIED OF PAIN SCORE WITH PT REFUSING MORPHINE. MD ORDERED HOME DOSE OF OXYCODONE TO RESUME. DAUGHTER, SAMY, CALLED FOR PT UPDATE ([phone]).
[2024-01-22] MEDS ORDERED: OxyCODONE HCL 5 MG TAB PO PRN (05:00)
[2024-01-22] MEDS ORDERED: Albuterol 2.5 MG/3 ML VIAL INH PRN (06:50)
[2024-01-22] MEDS ORDERED: Metoprolol Succinate 25 MG TABCR PO SCH (08:00)
[2024-01-22] MEDS ORDERED: CefTRIAXone 1000 MG Vial ONE (08:28)
[2024-01-22] MEDS ORDERED: NS 100 ML IV ONE (08:28)
[2024-01-22] MEDS ORDERED: Spironolactone 25 MG Tab PO SCH (09:00)
[2024-01-22] MEDS ORDERED: Levothyroxine Sodium 0.1 MG Tab PO SCH (09:00)
[2024-01-22] MEDS ORDERED: Losartan Potassium 50 MG Tab PO SCH (09:00)
[2024-01-22] MEDS ORDERED: Lactobacil 2-S.Thermo-Bifido 1 1 Cap PO SCH (09:00)
[2024-01-22] MEDS ORDERED: AmLODIPine Besylate 5 MG Tab PO SCH (09:00)
[2024-01-22] MEDS ORDERED: Empagliflozin 10 MG TAB PO SCH (09:00)
[2024-01-22] MEDS ORDERED: Rivaroxaban 10 MG Tab PO SCH (09:00)
[2024-01-22] MEDS ORDERED: CefTRIAXone Sodium 1,000 MG in NS 100 ML IV SCH (09:00)
[2024-01-22] MEDS ORDERED: Levothyroxine Sodium 0.125 MG Tab PO SCH (09:00)
[2024-01-22 09:39] LABS: Albumin/Globulin Ratio 0.8 (0.8-1.8); Bilirubin, Total 0.9 mg/dL (0.1-1.0); Bun/Creatinine Ratio 16.5 (12.0-20.0); Creatinine, Blood 1.21 mg/dL (0.40-1.00); Globulin, Blood 3.8 g/dL (2.2-4.0); Potassium, Blood 4.6 mmol/L (3.5-5.5); Total Protein, Blood 6.8 g/dL (6.4-8.2)
[2024-01-22 09:43] LABS: Calcium, Blood 12.1 mg/dL (8.5-10.1)
[2024-01-22] MEDS ORDERED: NS 1,000 ML IV SCH (11:07)
[2024-01-22] MEDS ORDERED: Dexamethasone Sod Phos 10 MG/ML 1ML VIAL IV SCH (11:26)
[2024-01-22] MEDS ORDERED: Ipratropium/Albuterol SulF 2.5-0.5MG/3 ML Amp INH SCH (11:35)
[2024-01-22] MEDS ORDERED: Metoclopramide HCl 5MG / ML 2ML Vial IV ONE (13:25)
[2024-01-22] MEDS ORDERED: Metoclopramide HCl 5MG / ML 2ML Vial IV PRN (13:45)
[2024-01-22 17:17] LABS: Bun/Creatinine Ratio 16.2 (12.0-20.0); Calcium, Blood 11.7 mg/dL (8.5-10.1); Creatinine, Blood 1.17 mg/dL (0.40-1.00)
--- NOTE | 2024-01-22 18:29 | NUR ---
SHIFT SUMMARY NEURO: PT ALERT AND ORIENTED TO SELF, PLACE, AND SITUATION BUT UNAWARE OF THE DATE. PT ANSWERES QUESTIONS APPROPRIATELY AND FOLLOWS COMMANDS. CARDAIC: PT HAS BEEN IN AFIB WITH A RATE IN THE 80'S-90'S. DENIES ANY CP. RESP: BREATH SOUNDS CLEAR THROUGHOUT AND DENIES ANY SOB. PT ON 2L NC AT BASELINE. GI/: PT IS INCONTINENT AND RAMAINED ON THE PURE WICK. PT DID NOT EAT ANY MEALS TODAY. PT REPORTED NAUSEA AT THE BEGINING OF THE SHIFT AND WAS GIVEN ZOFRAN WITH MINIMAL RELIEF. PROVIDER ORDERED REGLAN THAT GAVE PT RELIEF. PT WAS UP IN CHAIR BUT DID NOT WANT TO EAT ANYTHING. PO FLUIDS WERE ENCOURAGED THROUGHOUT SHIFT. SKIN: PT HAS A SORE ON HER COCCXYX. MEPLEX PLACED THIS AM. PT HAS BEEN TURNED Q2 HOURSE THROUGHOUT THIS SHIFT. NO OTHER SIGNIFICANT CHANGES OR EVENTS HAPPENED DURING SHIFT.
[2024-01-23] VITALS (8 sets, daily range): BP systolic 98–128; BP diastolic 58–86
[2024-01-23 03:53] LABS: BASOPHILS ABSOLUTE AUTO 0.02 K/mm3 (0.00-0.23); BASOPHILS PERCENT AUTO 0 % (0-2); EOSINOPHILS PERCENT AUTO 0 % (0-6); Hematocrit 45.4 % (33.0-51.0); IMMATURE GRAN ABSOLUTE AUTO 0.07 K/mm3 (0.00-0.10); IMMATURE GRAN PERCENT AUTO 1 % (0-1); LYMPHOCYTES ABSOLUTE AUTO 1.13 K/mm3 (0.84-5.20); LYMPHOCYTES PERCENT AUTO 9 % (21-46); MONOCYTES ABSOLUTE AUTO 0.64 K/mm3 (0.16-1.47); MONOCYTES PERCENT AUTO 5 % (4-13); Mean Corpuscular HGB 29.1 pg (26.0-34.0); Mean Corpuscular Volume 88 fL (80-100); Mean Platelet Volume 11.4 fL (9.1-12.4); NEUTROPHILS ABSOLUTE AUTO 11.31 K/mm3 (1.96-9.15); NEUTROPHILS PERCENT AUTO 86 % (41-73); Platelet Count 219 K/mm3 (150-400); RDW Coefficient Variation 14.6 % (11.7-14.2); Red Blood Cell Count 5.16 M/mm3 (3.80-5.20); White Blood Cell Count 13.17 K/mm3 (4.00-11.30)
[2024-01-23 04:12] LABS: Bun/Creatinine Ratio 18.3 (12.0-20.0); Calcium, Blood 10.9 mg/dL (8.5-10.1); Creatinine, Blood 1.04 mg/dL (0.40-1.00); Potassium, Blood 4.3 mmol/L (3.5-5.5)
[2024-01-23] MEDS ORDERED: Levothyroxine Sodium 0.15 MG Tab PO SCH (06:00)
[2024-01-23] MEDS ORDERED: Levothyroxine Sodium 0.125 MG Tab PO SCH (06:00)
[2024-01-23] MEDS ORDERED: Omeprazole 20 MG CapCR PO SCH (06:00)
--- NOTE | 2024-01-23 06:13 | NUR ---
SHIFT SUMMARY RESUMED PT CARE AT 1900. PT A&O3, VSS. PT REPORTED BACK PAIN AND HEADACHE THROUGH OUT THE NIGHT. ALONG W NAUSEA IN THE AM. PT ON Q2H TURNS, COCCYX WOUND REMAINS THE SAME. PT BED AT LOWEST POSITION, BED ALARM ON AND CALL LIGHT WITHIN REACH.
[2024-01-23] MEDS ORDERED: CefTRIAXone 1000 MG Vial ONE ×2 (08:25→08:47)
[2024-01-23] MEDS ORDERED: NS 100 ML IV ONE ×2 (08:25→08:47)
--- NOTE | 2024-01-23 10:14 | NUR ---
AM NOTE this rn assumed care at 0700. vital signs stable. tele afib 90s. patient is alert and oriented x3. patient is forgetful at times. patient denies chest pain/pressure, pain, or shortness of breath. patient had minimal intake this morning only eating small amounts of diced pears and drinking broth. patient reports nausea and received morning nausea medications. see shift assessment for further detials. purewick in place. md leo in to see patient this am. discussed plan of care. plan remains up to date
--- NOTE | 2024-01-23 11:58 | NUR ---
upon receiving a referral for spiritual care, I visited the patient. She tells me about her medical history, her current medical issues and the plan of care moving forward. She tells me about her strong [employer] jeremias and growing up going to latter day since she was a child. She shares a story about finding her son in law of a heart attack in their her home decade or so ago. Her dtr, Cynthia still lives with her. She does not show signs of spiritual distress but welcomes prayer and conversations centered around her jeremias, which I provided. She showed signs of being encouraged in her jeremias.
--- NOTE | 2024-01-23 17:07 | NUR ---
shift summary patient vital signs remain stable. tele afib 80s. patient neuro remains unchanged. repositioned q2. patient in chair today for meals. patient ate minimal food due to being nausea, medicated per emar. patient express some relief from medications. this rn encourage oral intake and offered other options of food. this rn updated provider on minimal intake. no acute changes this shift. plan remains up to date.
[2024-01-23 17:26] LABS: Bun/Creatinine Ratio 18.8 (12.0-20.0); Calcium, Blood 10.9 mg/dL (8.5-10.1); Creatinine, Blood 1.01 mg/dL (0.40-1.00)
[2024-01-24 01:29] LABS: VITAMIN D,1,25-DIHYDROXY 10.7 pg/mL (19.9-79.3)
[2024-01-24 04:13] LABS: BASOPHILS ABSOLUTE AUTO 0.04 K/mm3 (0.00-0.23); BASOPHILS PERCENT AUTO 0 % (0-2); EOSINOPHILS ABSOLUTE AUTO 0.05 K/mm3 (0.00-0.68); EOSINOPHILS PERCENT AUTO 0 % (0-6); Hematocrit 45.9 % (33.0-51.0); Hemoglobin 14.9 g/dL (11.5-16.0); IMMATURE GRAN ABSOLUTE AUTO 0.09 K/mm3 (0.00-0.10); IMMATURE GRAN PERCENT AUTO 1 % (0-1); LYMPHOCYTES ABSOLUTE AUTO 1.45 K/mm3 (0.84-5.20); LYMPHOCYTES PERCENT AUTO 10 % (21-46); MONOCYTES ABSOLUTE AUTO 1.14 K/mm3 (0.16-1.47); MONOCYTES PERCENT AUTO 8 % (4-13); Mean Corpuscular HGB 28.9 pg (26.0-34.0); Mean Corpuscular HGB Conc 32.5 g/dL (31.5-36.5); Mean Corpuscular Volume 89 fL (80-100); Mean Platelet Volume 11.1 fL (9.1-12.4); NEUTROPHILS PERCENT AUTO 81 % (41-73); Platelet Count 231 K/mm3 (150-400); RDW Coefficient Variation 14.7 % (11.7-14.2); RDW Standard Deviation 47.8 fL (35.1-46.3); Red Blood Cell Count 5.16 M/mm3 (3.80-5.20); White Blood Cell Count 14.77 K/mm3 (4.00-11.30)
[2024-01-24 04:30] VITALS: BP 110/72
[2024-01-24 04:40] LABS: Bun/Creatinine Ratio 17.8 (12.0-20.0); Calcium, Blood 10.5 mg/dL (8.5-10.1); Creatinine, Blood 1.01 mg/dL (0.40-1.00); Potassium, Blood 4.3 mmol/L (3.5-5.5)
--- NOTE | 2024-01-24 04:48 | NUR ---
SHIFT SUMMARY RESUMED CARE OF PT AT 1900. PT A&O3, CANNOT RECALL YEAR. VSS AND REPORTS EATING BETTER TODAY. NO ACUTE OVERNIGHT EVENTS. REPOSITIONED Q2H. PT BED IN LOWEST POSITION AND CALL LIGHT WITHIN REACH.
[2024-01-24] MEDS ORDERED: Polyethylene Glycol 3350 17 gm PO PRN (11:10)
[2024-01-24 11:52] VITALS: BP 99/81
--- NOTE | 2024-01-24 19:28 | NUR ---
SHIFT SUMMARY: NEURO: PATIENT REPORTED IMPROVED MENTATION. PATIENT ALERT AND ORIENTED X3 (WRONG DATE OF THE MONTH). PATIENT ABLE TO ANSWER QUESTIONS APPROPRIATELY AND MAKE HER NEEDS KNOWN. PATIENT REPORTS BLINDNESS IN RIGHT EYE AND PARTIAL BLINDNESS IN LEFT EYE. PATIENT CAHTO, BUT ABLE TO UNDERSTAND RN. PATIENT ABLE TO MOVE ALL EXTREMITIES. PATIENT UP TO CHAIR FOR LUNCH, BUT DECLINED OOB ACTIVITY FOR OTHER MEALS. PATIENT EASILY FATIGUED. PATIENT MEDICATED ONCE FOR PAIN WITH HOME OXYCODONE DOSE. CARDIAC: PATIENT IN AFIB IN THE 80S DURING THE SHIFT. WITH ACTIVITY, HR INCREASED INTO THE LOW 100S. PATIENT QUICKLY RECOVERED WITH REST. PATIENT DENIED CHEST PAIN OR DIZZINESS. VITALS STABLE WITH MAPS >65. RESPIRATORY: PATIENT STABLE ON ROOM AIR. PATIENT DENIED SHORTNESS OF BREATH OR DIFFICULTY BREATHING. SPO2 >94% ON ROOM AIR. GI/: PATIENT VOIDING DARK YELLOW URINE. NO FOULD ODOR NOTED. PATIENT REPORTS A MINIMAL APPETITE. DOWNGRADED TEXTURE TO MINCED AND MOIST RELATED TO LACK OF DENTATION. MEDICATED ONCE FOR MILD NAUSEA. NO EMESIS. NO BOWEL MOVEMENT THIS SHIFT. BOWEL CARE ORDERED. PATIENT ALSO REQUESTED AND RECEIVED PRUNE JUICE. PSYCHSOCIAL: PATIENT CALM AND COOPERATIVE WITH STAFF. SHE RECEIVED MULTIPLE PHONE CALLS FROM FAMILY.
[2024-01-24 20:40] VITALS: BP 106/80
[2024-01-24] MEDS ORDERED: Docusate Sodium/Senna 1 Tab PO SCH (21:00)
[2024-01-25 04:11] VITALS: BP 99/74
--- NOTE | 2024-01-25 04:49 | NUR ---
SHIFT SUMMARY PT RESTED T/O SHIFT. PAIN MANAGED PER EMAR. PT REPOSTIONED Q2 FOR REDNESS ON COCCYX. PT TOLERATING PO INTAKE. VOIDING, PUREWICK IN USE, DRAINING YELLOW URINE. VSS. NO OTHER CONCERNS AT THIS TIME, CALL LIGHT WITHIN REACH.
[2024-01-25 05:15] LABS: Albumin, Blood 2.9 g/dL (3.4-5.0); Anion Gap 16 mmol/L (3-11); Blood Urea Nitrogen 19 mg/dL (8-24); Bun/Creatinine Ratio 18.3 (12.0-20.0); CO2, Blood 15 mmol/L (21-32); Calcium, Blood 10.1 mg/dL (8.5-10.1); Chloride, Blood 109 mmol/L (98-108); Creatinine, Blood 1.04 mg/dL (0.40-1.00); Glomerular Filtration Rate 55 (60-); Glucose, Blood 105 mg/dL (70-99); Phosphorus, Blood 1.5 mg/dL (2.5-4.9); Potassium, Blood 3.8 mmol/L (3.5-5.5); Sodium, Blood 136 mmol/L (136-145)
--- NOTE | 2024-01-25 05:31 | NUR ---
PT TRANSFERRED TO 341 WITH ALL BELONGINGS
--- NOTE | 2024-01-25 06:17 | NUR ---
REPORT FROM ADAM AT 0515. PATIENT ARRIVED VIA BED FROM PCU 9 AT 0525. SETTLED IN ROOM, PUREWICK CONNECTED. DENIES NEEDS AT THIS TIME. BED ALARM ON, CALL LIGHT NEAR.TELE AF @79 PER VICENTE IN TELE. BED LOWERED.
[2024-01-25 07:43] VITALS: BP 105/77
[2024-01-25] MEDS ORDERED: NS 250 ML IV PRN (08:20)
[2024-01-25] MEDS ORDERED: DOCUZEN 8.6-501 EACH PO (15:10)
[2024-01-25] MEDS ORDERED: CEFD300 PO (15:32)
[2024-01-25] MEDS ORDERED: Sodium Phosphate Mono/Dibasic 250 MG Tab PO SCH (17:00)
--- NOTE | 2024-01-25 17:53 | NUR ---
DISCHARGE SUMMARY: PT DISCHARGED HOME WITH HOME HEALTH SERVICES TODAY. PT GRANDSON MITA PICKED UP PT TODAY. EDUCATED MITA AND PT ON DISCHARGE MEDICATIONS AND INSTRUCTIONS. MITA HAD PICKED UP PRESCRIPTIONS FROM [facility] PRIOR TO PICKING PT UP. TLER AND PT V/U. FAN HELMS ASSISTED PT WITH GETTING DRESSED AND REMOVING IV. PT ESCORTED TO POV VIA WHEELCHAIR. PT ABLE TO GET INTO VEHICLE WITH GRANDSON ASSISTANCE. DAUGHTER SAMY CALLED AND ALSO DISCUSSED MEDICATIONS WITH HER.
[2024-01-26 03:09] LABS: PTHRP BY LC-MS/MS,PLASMA 44.1 pmol/L (0.0-3.4)
== END 2024-01-25 16:50 | disposition home health service (06) | DRG 640 ==
LOC: ER 20:23 → PCU 23:49 → MEDS 01-25 05:24
PROVIDERS: Emergency Medicine; Family Medicine; Internal Medicine; Student in an Organized Health Care Education/Training Program; ADMIT Family Medicine
DX: E83.52 Hypercalcemia (principal); G93.41 Metabolic encephalopathy; N39.0 Urinary tract infection, site not specified; E87.1 Hypo-osmolality and hyponatremia; I48.20 Chronic atrial fibrillation, unspecified; J96.11 Chronic respiratory failure with hypoxia; K21.9 Gastro-esophageal reflux disease without esophagitis; E03.9 Hypothyroidism, unspecified; N18.32 Chronic kidney disease, stage 3b; J44.9 Chronic obstructive pulmonary disease, unspecified; I12.9 Hypertensive chronic kidney disease with stage 1 through stage 4 chronic kidney disease, or unspecified chronic kidney disease; Z85.3 Personal history of malignant neoplasm of breast; E86.1 Hypovolemia; Z88.8 Allergy status to other drugs, medicaments and biological substances; Z91.018 Allergy to other foods; Z79.899 Other long term (current) drug therapy; Z79.01 Long term (current) use of anticoagulants; Z79.891 Long term (current) use of opiate analgesic; Z79.890 Hormone replacement therapy; Z79.51 Long term (current) use of inhaled steroids; Z79.2 Long term (current) use of antibiotics; Z87.442 Personal history of urinary calculi; Z98.890 Other specified postprocedural states; Z90.49 Acquired absence of other specified parts of digestive tract; Z90.89 Acquired absence of other organs; Z87.891 Personal history of nicotine dependence
CPT/HCPCS: 36415; 70450; 71045; 80048; 80053; 80069; 81001; 82140; 82306; 82330; 82542; 82652; 83735; 83880; 83970; 84100; 84439; 84443; 84484; 85025; 85379; 85610; 85730; 87086; 93005; 93010; 94760; 96361; 96365; 96372-59; 97110; 97162; 97165; 97530; 97535; 99285-25; A9270; J0630; J0696; J1100; J2405; J2765; J3489; J7030; J7050